=== PATIENT | female | born 1980 | race Caucasian/White ===

== ENCOUNTER 2019-12-27 10:07 | Emergency (ER) | payer BC, SELFPAY ==
--- NOTE | ~2019-12-27 | XR_ITS ---
XR chest 1V portable 12/27/2019 10:38 Indication: Chest pain and cough Procedure: AP portable chest Comparison: No prior studies for comparison. Findings: Heart size normal. Calcified granuloma right upper lobe. No focal air space disease, pulmon hossein edema, pleural effusion or suspected pneumothorax. No acute osseous abnormality. Impression: 1: No acute cardiopulmonary disease. Reviewed, dictated and finalized at location A. Impression: 1: No acute cardiopulmonary disease.
--- NOTE | 2019-12-27 10:09 | ED.GENADULT ---
HPI - General Adult General Chief complaint: Chest Pain Stated complaint: CP, fatigue Time Seen by Provider: 12/27/19 10:09 History of Present Illness HPI narrative: Cough, congestion, pleuritic chest pain for the past few days. Worsening SOB today. She is unsure if she has any sick contacts. She has a h/o fibromyalgia and anxiety. Related Data Home Medications Medication Instructions Recorded Confirmed albuterol sulfate 1 inh INHALATION QID PRN 12/27/19 cetirizine [Zyrtec] 10 mg PO DAILY 12/27/19 Allergies Allergy/AdvReac Type Severity Reaction Status Date / Time latex Allergy Unknown Anaphylactic Verified 12/27/19 10:21 Shock Sulfa (Sulfonamide Allergy Unknown Dyspnea / Verified 12/27/19 10:21 Antibiotics) SOB Review of Systems Review of Systems: All systems reviewed & are unremarkable except as noted in HPI and below Constitutional: Constitutional: Reports chills, Denies fever(s) and Reports weakness Eyes: Eyes: Reports no additional eye complaints ENT: Denies sore throat Cardiovascular: Cardiovascular: Reports chest pain and Reports rapid heart rate Respiratory: Respiratory: Reports chest congestion, Reports cough and Reports dyspnea Gastrointestinal: Gastrointestinal: Denies abdominal pain and Reports nausea Genitourinary: Genitourinary: Denies hematuria and Denies dysuria Musculoskeletal: Musculoskeletal: Reports myalgias Neurologic: Reports dizziness Psychiatric: Psychiatric: Reports anxiety PMFSH Family History Family History Father Hypertension Patient's father is in good health Sibling Patient's sister is in good health Patient's brother is in good health Mother Family history of lymphoma Social History Social History Smoking status: Never smoker Alcohol intake: current Gender identity (if verbalized by the patient): Female Exam Const: General: healthy appearing, no acute distress and alert Nutritional Appearance: well nourished Orientation/consciousness: patient oriented x3 HENMT: Head: normal to inspection Chest: Chest palpation & inspection: normal inspection of the chest Resp: Effort & Inspection: normal respiratory effort Auscultation: clear to auscultation bilaterally, no rhonchi and no wheezes Cardio: Rate: regular rate Rhythm: regular rhythm GI: GI Palp: Yes Soft to palpation and No Tenderness to palpation present (GI) Skin: General skin exam: normal color Neuro: General: patient oriented x3, moves all extremities and no focal motor deficits Speech: normal speech Extrem: General: normal to inspection and no edema Psych: Appearance: grossly normal and well kempt Affect: Anxious affect present Course Vital Signs Vital signs: Vital Signs Temperature 37.1 C 12/27/19 10:12 Pulse Rate 105 H 12/27/19 10:12 Respiratory Rate 14 12/27/19 10:12 Blood Pressure 142/87 H 12/27/19 10:12 Pulse Oximetry 100 12/27/19 10:12 Temperature 37.1 C 12/27/19 10:12 Pulse Rate 112 H 12/27/19 12:35 Respiratory Rate 17 12/27/19 12:35 Blood Pressure 112/80 12/27/19 12:35 Pulse Oximetry 98 12/27/19 12:35 Medical Decision Making MDM Narrative Medical decision making narrative: CXR clear. Labs, EKG reassuring. Vitals essentially normal apart from intermittent tachycardia, which is likely anxiety related Medical Records Medical records reviewed: Yes I reviewed the patient's medical records. Vital Signs Vital Signs: Vital Signs Temperature 37.1 C 12/27/19 10:12 Pulse Rate 105 H 12/27/19 10:12 Respiratory Rate 14 12/27/19 10:12 Blood Pressure 142/87 H 12/27/19 10:12 Pulse Oximetry 100 12/27/19 10:12 Temperature 37.1 C 12/27/19 10:12 Pulse Rate 112 H 12/27/19 12:35 Respiratory Rate 17 12/27/19 12:35 Blood Pressure 112/80 12/27/19 12:35 Pulse Oximetry 98 12/27/19 12:35 Lab
[2019-12-27 10:12] VITALS: BP 142/87; PULSE 105; RESP 14; TEMP 37.1; O2SAT 100
[2019-12-27 10:19] VITALS: PULSE 100
--- NOTE | 2019-12-27 10:20 | ECG_ITS ---
Measurements Intervals [place] Rate: 91 P: 69 NC: 118 QRS: 58 QRSD: 86 T: 57 QT: 335 QTc: 412 Interpretive Statements SINUS RHYTHM WITH SHORT NC INTERVAL BORDERLINE T WAVE ABNORMALITY- ANTERIOR LEADS BASELINE WANDER- I, II BORDERLINE ECG Electronically Signed On 12-27-2019 10:22:30 CDT by Ketan Stapleton D.O.
[2019-12-27 10:31] LABS: Basophils Percent Auto 0.4 % (0.2-1.2); Eosinophils Percent Auto 0.4 % (0-4.4); Hematocrit 42.2 % (37.0-47.0); Hemoglobin 13.5 g/dL (12.0-15.0); Immature Granulocyte Absolute 0.02 K/mm3 (0.00-0.031); Immature Granulocyte Percent A 0.3 % (0-0.5); Lymphocytes Absolute Auto 1.96 K/mm3 (0.9-3.2); Lymphocytes Percent Auto 27.3 % (18.3-44.2); Mean Corpuscular Hemoglobin 27.4 pg (26-34); Mean Corpuscular Volume 85.6 fl (80-100); Mean Platelet Volume 9.8 fl (7.4-10.4); Monocytes Absolute Auto 0.6 K/mm3 (0.1-0.6); Monocytes Percent Auto 8.5 % (2.6-8.5); Neutrophils Absolute Auto 4.5 K/mm3 (1.3-6.7); Neutrophils Percent Auto 63.1 % (45.5-73.1); Platelet Count Result 301 k/mm3 (150-375); Red Blood Count 4.93 M/mm3 (4.2-5.4); Red Cell Distribution Width 13.4 % (11.5-14.5); White Blood Count 7.2 K/mm3 (4.5-10.0)
[2019-12-27] MEDS: ONDANSETRON INJ 4 MG/2 ML VIAL IV PUSH (10:33)
[2019-12-27 10:42] LABS: Blood Urea Nitrogen 18 mg/dL (7-17); Calcium 9.5 mg/dL (8.4-10.2); Carbon Dioxide 27 mmol/L (22-30); Chloride 105 mmol/L (98-107); Estimated Glomerular Filt Rate > 60; Glucose 133 mg/dL (65-105); Partial Thromboplastin Time 30.1 SECONDS (22.3-36.8); Potassium 3.5 mmol/L (3.4-5.0); Prothrombin Time 13.1 Seconds (11.1-14.7); Sodium 139 mmol/L (137-145)
[2019-12-27 10:54] LABS: Troponin I < 0.012 ng/mL (0.000-0.034)
[2019-12-27 10:59] VITALS: BP 132/78; PULSE 87; RESP 18; O2SAT 99
[2019-12-27 12:35] VITALS: BP 112/80; PULSE 112; RESP 17; O2SAT 98
[2019-12-27] MEDS: KETOROLAC 30 MG/ML VIAL (*BKC) IV PUSH (12:36)
== END 2019-12-27 12:40 | disposition home or self-care (01) ==
PROVIDERS: Emergency Provider Emergency Medicine
DX: J06.9 Acute upper respiratory infection, unspecified (principal); M79.7 Fibromyalgia; R94.31 Abnormal electrocardiogram [ECG] [EKG]
CPT/HCPCS: 36415; 71045; 80048; 84484; 85025; 85610; 85730; 93005; 96374; 96375; 99284; J1885; J2405

== ENCOUNTER 2020-06-27 16:58 | Outpatient (CLI) | payer BC, SELFPAY ==
--- NOTE | ~2020-06-27 | CT_ITS ---
EXAMINATION:CT chest wo con DATE: 06/27/2020 18:09 INDICATION: Solitary pulmonary nodule. TECHNIQUE: Computed tomography (CT) of the chest was performed without intravenous contrast. Automate d exposure control and iterative reconstruction technique were employed. The dose-length product (DLP ) was 140.23 mGy-cm. COMPARISON: CT abdomen and pelvis 02/04/2018 FINDINGS: There is mild atelectasis bilaterally. A calcified right lung nodule and calcified right hi lar lymph nodes are consistent with old granulomatous disease. No pleural effusion. The heart size is normal. No pericardial effusion. There is mild thoracic spondylosis. IMPRESSION: 1. Calcified right lung nodule, consistent with old granulomatous disease. Reviewed, dictated and finalized at location A.
--- NOTE | ~2020-06-27 | MR_ITS ---
EXAMINATION: MR brain/brain stem wo/w con EXAM DATE: 06/27/2020 18:05 INDICATION: Right-sided migraines, neurological problems. TECHNIQUE: Magnetic resonance imaging (MRI) of the brain/brain stem obtained without contrast. Sagit christian T1, axial diffusion, gradient echo (T2*), T1, T2, FLAIR sequences obtained. Patient was then inj ected with 15 cc intravenous Multihance contrast. Axial and coronal postcontrast T1 weighted sequence s obtained. There is no prior study for comparison. FINDINGS: There are no areas of restricted diffusion to suggest acute infarction. There is no acute hemorrhage seen on the T2*, a hemosiderin sensitive sequence. No intraparenchymal brain mass. The ve ntricles are normal in size. There are no extra-axial collections. Flow voids are seen in the cereb ral arteries on the T2-weighted sequences consistent with their expected patency. The orbits are unr emarkable. Soft tissue is unremarkable. There are no areas of abnormal enhancement on the postcont rast images. IMPRESSION: 1. Normal brain MRI examination. Reviewed, dictated and finalized at location A.
[2020-06-27 17:35] LABS: Estimated Glomerular Filt Rate > 60
== END 2020-06-27 16:59 | disposition home or self-care (01) ==
PROVIDERS: PCP Internal Medicine; Visit Provider Physician Assistant
DX: R91.1 Solitary pulmonary nodule (principal); Z86.69 Personal history of other diseases of the nervous system and sense organs; G43.909 Migraine, unspecified, not intractable, without status migrainosus
CPT/HCPCS: 70553; 71250; A9577

== ENCOUNTER 2020-07-27 12:39 | Outpatient (CLI) | payer BC, SELFPAY ==
--- NOTE | ~2020-07-27 | US_ITS ---
EXAMINATION: US transvaginal EXAM DATE: 07/27/2020 13:08 INDICATION: ovarian cyst TECHNIQUE: Pelvic transvaginal sonogram was performed. There are multiple grayscale and Doppler miri ges available for interpretation. Comparison is made to prior examination from 05/09/1960. FINDINGS: There is been interval hysterectomy and reportedly right oophorectomy. The vaginal cuff is unremarkable. There is no free pelvic fluid. Right adnexa: The ovary is not identified. There is no adnexal mass. Left adnexa: The ovary measures 3.1 x 2.4 x 3.7 cm and is morphologically normal. Ovarian vascular fl ow confirmed. IMPRESSION: Unremarkable left ovary. Reviewed, dictated and finalized at location A. MACHINE SUPERVISOR IMPRESSION: Unremarkable left ovary.
== END 2020-07-27 12:40 ==
PROVIDERS: PCP Physician Assistant; Visit Provider Obstetrics & Gynecology Gynecology
DX: N83.202 Unspecified ovarian cyst, left side (principal)
CPT/HCPCS: 76830

== ENCOUNTER 2020-11-21 15:46 | Outpatient (CLI) | payer BC, SELFPAY ==
--- NOTE | ~2020-11-21 | CT_ITS ---
EXAMINATION: CT soft tissue neck w con DATE: 11/21/2020 16:38 INDICATION: Cervical lymphadenopathy. TECHNIQUE: Computed tomography (CT) of the neck was performed with 75 mL Omnipaque-350 intravenous co ntrast. Automated exposure control and iterative reconstruction technique were employed. The dose-brenda gth product was 401.91 mGy-cm. COMPARISON: Chest CT 06/27/2020 FINDINGS: A calcified right lung nodule is consistent with old granulomatous disease. The cervical ca rotid arteries are normal. There are no pathologically enlarged lymph nodes. There is moderate cervic al spondylosis. IMPRESSION: 1. No lymphadenopathy. Reviewed, dictated and finalized at location A. ROOM CLERK IMPRESSION: 1. No lymphadenopathy.
--- NOTE | ~2020-11-21 | US_ITS ---
US axilla 11/21/2020 16:52 Indication: Enlarged lymph nodes. Procedure: High-resolution ultrasound of the axilla bilaterally Comparison: No prior studies for comparison. Findings: Right axilla: There is an oval hypoechoic mass with echogenic hilum measuring 1.5 x 1.2 x 1 .8 cm, consistent with a lymph node. Left axilla: There is a 1.4 cm normal-appearing lymph node. No o ther discrete masses or fluid collections in either axilla. Impression: 1: Bilateral lymph nodes which retain normal fatty hilum, likely reactive. If there is a history of m alignancy (i.e. lymphoma), consider biopsy. Otherwise, follow-up clinically with repeat ultrasound as indicated. Reviewed, dictated and finalized at location A. OBIOLOGY PROFESSOR Impression: 1: Bilateral lymph nodes which retain normal fatty hilum, likely reactive. If t here is a history of malignancy (i.e. lymphoma), consider biopsy. Otherwise, fo llow-up clinically with repeat ultrasound as indicated.
== END 2020-11-21 15:47 ==
PROVIDERS: PCP Internal Medicine; Visit Provider Physician Assistant
DX: R59.1 Generalized enlarged lymph nodes (principal)
CPT/HCPCS: 70491; 76882; Q9967

== ENCOUNTER 2021-10-08 10:19 | Outpatient (CLI) | payer OTHER, SELFPAY ==
[2021-10-08 10:59] LABS: Add Urine Microscopic? YES; Appearance Urine Clear (Clear); Bacteria Urine Trace /hpf; Bilirubin Urine Negative (Negative); Blood Urine 2+ (Negative); Color Urine Straw (Yellow); Glucose Urine UA Negative (Negative); Ketones Urine Negative (Negative); Leukocyte Esterase Ur 3+ LEU/UL (NEGATIVE); Mucus Urine Rare /lpf; Nitrate Urine Negative (Negative); Protein Urine Negative (Negative); Specific Grav Ur 1.006 (1.001-1.035); Squamous Epithelial Cell Urine Rare /hpf (Few); Urobilinogen Urine Negative mg/dL (<2.0); WBC Urine 31-50 /hpf (0-3)
== END 2021-10-08 10:20 | disposition home or self-care (01) ==
PROVIDERS: PCP Physician Assistant; Visit Provider Physician Assistant
DX: R30.0 Dysuria (principal)
CPT/HCPCS: 81001; 87086

== ENCOUNTER 2022-06-27 03:44 | Day surgery (SDC) | payer OTHER, SELFPAY ==
[2022-06-13 11:26] VITALS: BMI 25.9
--- NOTE | 2022-06-26 16:31 | PM.HPGS ---
History of Present Illness History of Present Illness Consent: Risks, benefits, and alternatives have been discussed and questions answered. Patient agrees to proceed with procedure. Chief complaint: abdominal pain, melena Narrative: Sahra Ortiz is a 42 year old female Was recently in her primary care provider's office complaining of abdominal pain and also has had a change in bowel habits, reporting diarrhea and constipation but mostly diarrhea lately. she states that this has been going on for several years. She had EGD and colonoscopy in [place] 3 years ago and nothing was found. She has been tested for celiac disease and that was negative but she has found that gluten gives her trouble so she avoids it. She has pain almost every time she eats within about 20 minutes the pain is generalized sometimes she has the urge to have a bowel movement immediately after eating here for she never knows whether I need to go to the bathroom when I eat. and has seen some blood in her stools. She has arthritis and fibromyalgia in uses quite a bit of NSAIDs. I discussed amitriptyline with her. She states she took it once for migraines and made her very sleepy. She can only drink half a cup of coffee because any more will make her miserably Uncomfortable. She has lost about 20 lb in last year, and About 30 total since she gave about 9 years ago. Review of Systems Review of Systems: All systems reviewed & are unremarkable except as noted in HPI and below PMFSH Past Medical History Medical History Anemia Bruise delivery delivered Chest pain Endometriosis determined by laparoscopy Fibromyalgia Inflammatory arthritis Shortness of breath Vaginal discharge Surgical History Surgical History History of appendectomy History of cholecystectomy History of hysterectomy Family History Family History Father Hypertension Patient's father is in good health Sibling Patient's sister is in good health obesity, depression Patient's brother is in good health narcolepsy Mother Family history of lymphoma Depression Obesity Posey's palsy Social History Social History Smoking packs per day: 0.5 Smoking cigarettes per day: 10.0 Years smoked: 2 Smoking pack-years: 1.00 Smoking status: Former smoker Tobacco type: cigarettes Alcohol intake: current Drinks per week: 3 Substance use type: does not use Living arrangements: with family Gender identity (if verbalized by the patient): Female Spiritual care concerns: No Meds Home Medications and Allergies Home Medications Medication Instructions Recorded Confirmed Type buspirone 10 mg tablet 10 mg PO BID #180 tabs 01/15/22 06/13/22 Rx Allergies Allergy/AdvReac Type Severity Reaction Status Date / Time latex Allergy Unknown Anaphylactic Verified 06/27/22 11:31 Shock Sulfa (Sulfonamide Allergy Unknown Dyspnea / Verified 06/27/22 11:31 Antibiotics) SOB Exam Const: General: alert Orientation/consciousness: patient oriented x3 Resp: Auscultation: clear to auscultation bilaterally Cardio: Rhythm: regular rhythm GI: GI Palp: Yes Soft to palpation and No Tenderness to palpation present (GI) Neuro: General: patient oriented x3 Assessment and Plan Assessment and plan (1) Abdominal pain: Qualifiers: Abdominal location: generalized Qualified Code(s): R10.84 - Generalized abdominal pain Code(s): R10.9 - Unspecified abdominal pain Status: Acute Assessment and Plan: EGD with possible biopsy or dilatation or cautery. (2) Blood in stool: Code(s): K92.1 - Melena Status: Acute Assessment and Plan: Colonoscopy with possible
[2022-06-27 11:36] VITALS: BP 113/75; PULSE 89; RESP 18; TEMP 36.1; O2SAT 100
[2022-06-27] MEDS: LACTATED RINGERS 1,000 ML 150 ML IV CONT (11:45)
--- NOTE | 2022-06-27 12:34 | WPDANESEPPF ---
Anes - Initial Pre Proc Eval Procedure: Operation Date: 06/27/22 13:00 Proposed Procedures p Esophagogastroduodenoscopy & Colonoscopy - Dom Buchanan MD Date/Time: 06/27/22 12:34 Surgeon: Dom Buchanan MD Pre Op Diagnosis: abdominal pain, melena Patient Data Age: 42 Gender: F Height: 1.73 m Weight: 75.7 kg Last Vital Signs Temp 97 F L 06/27/22 11:36 Pulse 89 06/27/22 11:36 Resp 18 06/27/22 11:36 BP 113/75 06/27/22 11:36 Pulse Ox 100 06/27/22 11:36 O2 Del Method Room Air 06/27/22 11:36 Allergies Allergy/AdvReac Type Severity Reaction Status Date / Time latex Allergy Unknown Anaphylactic Verified 06/27/22 11:31 Shock Sulfa (Sulfonamide Allergy Unknown Dyspnea / Verified 06/27/22 11:31 Antibiotics) SOB Home Medications Medication Instructions Recorded Confirmed Type buspirone 10 mg tablet 10 mg PO BID #180 tabs 01/15/22 06/13/22 Rx Patient hx anesthesia problems: none Family hx anesthesia problems: none Results Review: All pre-operative results and documents have been reviewed as part of the pre-operative evaluation. [facility] Past Medical History Medical History (Updated 06/26/22 @ 16:34 by Dom Buchanan MD) Anemia Bruise delivery delivered Chest pain Endometriosis determined by laparoscopy Fibromyalgia Inflammatory arthritis Shortness of breath Vaginal discharge Surgical History Surgical History History of appendectomy History of cholecystectomy History of hysterectomy Family History Family History Father Hypertension Patient's father is in good health Sibling Patient's sister is in good health obesity, depression Patient's brother is in good health narcolepsy Mother Family history of lymphoma Depression Obesity Posey's palsy Social History Social History Smoking packs per day: 0.5 Smoking cigarettes per day: 10.0 Years smoked: 2 Smoking pack-years: 1.00 Smoking status: Former smoker Tobacco type: cigarettes Alcohol intake: current Drinks per week: 3 Substance use type: does not use Living arrangements: with family Gender identity (if verbalized by the patient): Female Spiritual care concerns: No Anes - Eval Final PreProcedure Day of Procedure 06/27/22 12:34 Patient weight: normal Heart: regular rate and rhythm Lungs: clear to auscultation Airway: Mallampati scale class II Neurological: alert and oriented Last oral intake: >/= 8 hours ASA classification: II Emergent: no Anesthetic plan: proceed Anesthesia type and monitoring: general GIVS and standard monitoring Results Review: All pre-operative results and documents have been reviewed as part of the pre-operative evaluation. Informed Consent: The patient's anesthetic plan and its attendant risks and benefits were discussed with the patient/family/POA. Questions were solicited and answers provided to the satisfaction of the patient/family/POA.
[2022-06-27 13:14] VITALS: BP 107/73; PULSE 83; RESP 20; O2SAT 99
[2022-06-27 13:24] VITALS: BP 102/63; PULSE 87; RESP 20; O2SAT 100
--- NOTE | 2022-06-27 13:26 | SUR.OPER ---
EGD START: 1250; END: 1252. COLONOSCOPY START: 1258; END: 1312.
[2022-06-27 13:34] VITALS: BP 100/69; PULSE 72; RESP 17; O2SAT 100
== END 2022-06-27 13:53 | disposition home or self-care (01) ==
PROVIDERS: PCP Internal Medicine; Visit Provider Internal Medicine Gastroenterology
PROC: 0DJ08ZZ Inspection of Upper Intestinal Tract, Via Natural or Artificial Opening Endoscopic (ICD-10-PCS; CPT 43235; principal; 2022-06-27 13:00)
DX: R10.84 Generalized abdominal pain (principal); R19.7 Diarrhea, unspecified; K92.1 Melena; K21.9 Gastro-esophageal reflux disease without esophagitis; Z87.891 Personal history of nicotine dependence
CPT/HCPCS: 45380; 43239; 87081; 88305; J2704; J7120

== ENCOUNTER 2023-06-13 11:37 | Outpatient (CLI) | payer OTHER, SELFPAY ==
[2023-06-13 12:18] LABS: Appearance Urine Clear (Clear); Bacteria Urine None Seen /hpf; Bilirubin Urine Negative (Negative); Blood Urine 1+ (Negative); Color Urine Yellow (Yellow); Glucose Urine UA Negative (Negative); Ketones Urine Negative (Negative); Leukocyte Esterase Ur Trace LEU/UL (NEGATIVE); Nitrate Urine Negative (Negative); Non Pathogenic Casts 0-2; Protein Urine Negative (Negative); RBC Urine 0-2 /hpf (0-2); Specific Grav Ur 1.005 (1.001-1.035); Squamous Epithelial Cell Urine Occasional /hpf (Few); Urobilinogen Urine 0.2 mg/dL (<2.0)
[2023-06-13 12:31] LABS: Add Urine Microscopic? YES
== END 2023-06-13 11:38 | disposition home or self-care (01) ==
PROVIDERS: PCP Physician Assistant; Visit Provider Physician Assistant
DX: R30.0 Dysuria (principal)
CPT/HCPCS: 81001; 87077; 87086; 87186

== ENCOUNTER 2023-09-30 09:44 | Emergency (ER) | payer SELFPAY ==
--- NOTE | ~2023-09-30 | XR_ITS ---
XR foot LT min 3V DATE: 09/30/2023 10:09 INDICATION: Left great toe infection for 3 months. TECHNIQUE: 4 views COMPARISON: None FINDINGS: There is joint space narrowing and spurring at the first metatarsophalangeal joint consiste nt with osteoarthritis. There is a small accessory ossicle at the medial aspect of the interphalangeal joint of the great toe . Os tibiale externum, normal variant. Plantar calcaneal enthesopathy without associated erosive change or periosteal reaction. No fracture, dislocation, periosteal reaction or bone destruction is detected. IMPRESSION: Mild osteoarthritis at first metatarsophalangeal joint Plantar calcaneal enthesopathy Reviewed, dictated and finalized at location L. KE ON MACHINE OPERATOR
--- NOTE | 2023-09-30 09:48 | ED.EXTPRO ---
HPI - Extremity Problem General Chief complaint: Extremity Problem,Nontraumatic Stated complaint: Toe Infection Time Seen by Provider: 09/30/23 09:49 Source: patient Mode of arrival: ambulatory Limitations: no limitations History of Present Illness HPI Narrative: Sahra is a 43-year-old female patient presenting to the clinic today with complaints of a possible toe infection. She reports her symptoms have been going on for 3 months. She reports she did not have insurance so she was not seen by any other providers. Has having pain to the left great toe with the pain radiating up into her leg. Last night her she had redness and swelling to the left side of her media foot, medial ankle, and lower medial leg. Denies any fever or chills. 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 Patient denies any fever, chills, rash, headache, visual changes, dizziness, cough, runny nose, sore throat, shortness of breath, chest pain, palpitations, nausea, vomiting, diarrhea, constipation, abdominal pain, or any urinary issues. [facility] Past Medical History Medical History Anemia Bruise delivery delivered Chest pain Endometriosis determined by laparoscopy Fibromyalgia Inflammatory arthritis Shortness of breath Vaginal discharge Surgical History Surgical History History of appendectomy History of cholecystectomy History of hysterectomy Family History Family History Father Hypertension Patient's father is in good health Sibling Patient's sister is in good health obesity, depression Patient's brother is in good health narcolepsy Mother Family history of lymphoma Depression Obesity Posey's palsy Social History Social History Smoking packs per day: 0.5 Smoking cigarettes per day: 10.0 Years smoked: 2 Smoking pack-years: 1.00 Smoking status: Former smoker Tobacco type: cigarettes Alcohol intake: current Drinks per week: 3 Substance use type: does not use Lack of Transportation: No Lack of Food: Never True Current Housing: I Have Housing Concerned About Future Housing: No Difficulty Paying Gas/Electric Bills: No Difficulty Paying for Meds: No Currently Unemployed: No Education: High School Diploma/GED Difficulty w/ Childcare or Family Care: No Living arrangements: with family Gender identity (if verbalized by the patient): Female Spiritual care concerns: No Comments At the time of my signature, I reviewed and agree with the nursing past medical, surgical, social, and family history. There is no relevant family history pertinent to the patient complaint. Exam Narrative: General: Well-developed, well nourished, in no apparent distress Head: Normocephalic, atraumatic. Cardio: Regular rate and rhythm, s1 and s2 normal, no murmur appreciated. Resp: Clear to auscultation bilaterally, no rhonchi, rales, wheezing or rubs. Musculoskeletal: No deformity, redness and swelling to the distal left great toe with pain radiating into the foot and ankle. Mild erythema to the distal toe, toenail appears to be slightly lifted and discolored with surrounding redness, no redness streaking up the foot, ankle, or leg at this time, grossly normal range of motion, muscle strength strong and equal, peripheral pulse strong, no edema, no cyanosis, normal gait and station Course Course Emergency Course: Po
[2023-09-30 09:52] VITALS: BP 116/84; PULSE 95; RESP 16; TEMP 37.1; O2SAT 100
[2023-09-30 10:09] VITALS: BP 116/84; PULSE 95; RESP 16; TEMP 37.1; O2SAT 100
== END 2023-09-30 10:29 | disposition home or self-care (01) ==
PROVIDERS: Emergency Provider Nurse Practitioner Family; PCP Physician Assistant
DX: L08.9 Local infection of the skin and subcutaneous tissue, unspecified (principal); M19.072 Primary osteoarthritis, left ankle and foot; Z87.891 Personal history of nicotine dependence; N80.9 Endometriosis, unspecified; M79.7 Fibromyalgia
CPT/HCPCS: 73630; 99213; G0463

== ENCOUNTER 2024-04-01 12:34 | Outpatient (CLI) | payer OTHER, SELFPAY ==
--- NOTE | ~2024-04-01 | CT_ITS ---
CT of the Abdomen and Pelvis: Indication: Abdominal pain Technique: 2.5 mm axial scans were obtained through the abdomen and pelvis following intravenous adm inistration of 100 cc of Omnipaque 350. Dose reduction technique was used on this scan by utilizing a utomated exposure control and iterative reconstruction technique. The dose-length product (DLP) was 7 87.91 mGy-cm. Findings: Scans through the lung bases are unremarkable. The liver, spleen, pancreas, adrenals and kidneys are within normal limits. Gallbladder is absent. No evidence of aortic aneurysm. No lymphadenopathy. No bowel obstruction or bowel wall thickening. Status post probable prior appendectomy. Images through the pelvis were performed. Urinary bladder unremarkable. No pelvic mass seen. No ascit es. Impression: No significant abnormalities seen. Reviewed, dictated and finalized at [facility]. Impression: No significant abnormalities seen.
== END 2024-04-01 12:35 ==
PROVIDERS: PCP Physician Assistant; Visit Provider Nurse Practitioner
DX: R19.7 Diarrhea, unspecified (principal); R10.9 Unspecified abdominal pain
CPT/HCPCS: 74177; Q9967